=== PATIENT | male | born 1970 | race Caucasian/White ===

== ENCOUNTER 2021-11-07 18:58 | Emergency (ER) | payer BC, SELFPAY ==
[2021-11-07 19:04] VITALS: BP 160/102; PULSE 85; RESP 16; TEMP 37.1; O2SAT 99
--- NOTE | 2021-11-07 19:13 | ED.WOUNDLAC ---
HPI - Wound/Laceration General Chief Complaint: Wound/Laceration Stated Complaint: head injury Time Seen by Provider: 11/07/21 19:10 Source: patient and RN notes reviewed Mode of arrival: ambulatory Limitations: no limitations History of Present Illness HPI narrative: 51-year-old male presents with concern for injury. Reports just prior to arrival he slipped while getting out of the shower and hit the back of his head on the corner of the wall. He denies loss of consciousness, denies headache. Reports gradual onset of mild left neck pain. He is up-to-date on his tetanus vaccination. Related Data Allergies Allergy/AdvReac Type Severity Reaction Status Date / Time No Known Allergies Allergy Verified 11/07/21 19:26 Review of Systems Review of Systems: CONSTITUTIONAL: Denies malaise, chills, sweats, or fever. SKIN: Reports laceration to the back of the head MUSCULOSKELETAL: Reports mild left-sided neck pain GI: Denies nausea or vomiting NEUROLOGIC: Denies numbness, weakness, headache All systems reviewed & are unremarkable except as noted in HPI and below PMFSH Comments At time of signature, agree with nursing past medical, surgical, social and family history. There is no relevant family history pertinent to the presenting complaint Exam Narrative: GENERAL: Well-appearing, well-nourished, and in no acute distress. HEAD: Normocephalic, atraumatic. EYES: PERRLA, conjunctivae clear, and EOMI. ENT: Mucous membranes moist. NECK: Supple. No lymphadenopathy CHEST: Clear to auscultation. No respiratory distress. HEART: Regular rate and rhythm. MUSCULOSKELETAL: No midline neck tenderness, equal strength and sensation in bilateral upper extremities SKIN: Warm, dry. 5 cm slightly gaping laceration noted to the left-sided occipital area without surrounding erythema, and edema or induration, no current bleeding NEURO: Alert and oriented x3. No focal deficits, cranial nerves II through XII grossly intact PSYCH: Normal mood and affect Course Course Emergency Course: Patient is aware of diagnosis, understands and agrees to treatment plan. Anticipatory guidance given. Patient agrees to follow-up as directed and is aware of reasons to seek care at the emergency department. Portions of this record may have been created with voice recognition software Level of Care: Express Care Visit Vital Signs Vital signs: Vital Signs Temperature 98.8 F 11/07/21 19:04 Pulse Rate 85 11/07/21 19:04 Respiratory Rate 16 11/07/21 19:04 Blood Pressure 160/102 H 11/07/21 19:04 Pulse Oximetry 99 11/07/21 19:04 Temperature 98.8 F 11/07/21 19:04 Pulse Rate 85 11/07/21 19:04 Respiratory Rate 16 11/07/21 19:04 Blood Pressure 160/102 H 11/07/21 19:04 Pulse Oximetry 99 11/07/21 19:04 Reviewed. Procedures Laceration Laceration 1: Date: 11/07/21 Time: :10 Site: scalp Side (If applicable): left Size (cm): 5 Description: linear Depth: simple, single layer Pre-repair: wound explored and irrigated ====== Skin Level ====== Skin layer closed with: martínez Number of sutures: 5 ====== Subcutaneous Layer ====== ====== Muscle Layer ====== ====== Tendon Layer ====== MDM - Wound/Laceration MDM Narrative Medical decision making narrative: Wound explored for foreign body and copious irrigation provided with no evidence of FB. Discussed the potential of retained foreign body with the patient and signs/symptoms that should prompt the patient to immediately go to the ED for reevaluation. The laceration was identified to be 5 cm in length and located at left occipital area. The laceration was cleansed with manager fitness and no debris was noted. Local anesthesia was obtained by injecting 1% lidocaine at the laceration site. The laceration was then irrigated. The wound was explored and no foreign bodies were found. The wound was closed with 5 martínez. Ant
[2021-11-07 19:33] VITALS: BP 163/100; PULSE 83
== END 2021-11-07 19:33 | disposition home or self-care (01) ==
PROVIDERS: Emergency Provider Nurse Practitioner
DX: S01.01XA Laceration without foreign body of scalp, initial encounter (principal); W01.0XXA Fall on same level from slipping, tripping and stumbling without subsequent striking against object, initial encounter; I10 Essential (primary) hypertension; Z86.16 Personal history of COVID-19
CPT/HCPCS: 12002; 99212; G0463